=== PATIENT | male | born 1945 | race African-American/Black ===

== ENCOUNTER 2021-04-22 17:07 | Inpatient (IN) | payer MEDICARE ==
[~2021-04-22] VITALS: Ht 180.3 cm; Wt 98.9 kg
[2021-04-22 21:28] VITALS: BP 149/80
--- NOTE | 2021-04-23 03:26 | NUR ---
PT WAS A DIRECT ADMIT FROM [facility].PT ALERT WITH FORGETFULNESS.ZIO OPERATIONS ENGINEER NOTED TO HIS L CHEST,PT UNABLE TO EXPLAIN WHY HE HAS IT.UP WITH ASSIST TO THE TOILET.CHASSIS DRIVER ON DUTY ROUNDED ON PT,ORDERS NOTED AND CARRIED OUT. PT ON TELE,SINUS MARK.PT RESTING ON HIS BED AT THIS TIME.CALL LIGHT WITHIN REACH.
[2021-04-23 03:57] VITALS: BP 109/62
[2021-04-23 07:00] LABS: HEMATOCRIT 40.7 % (42.0-52.0); HEMOGLOBIN 13.7 gm/dL (14.0-18.0); MCH 31.1 pg (26.0-34.0); MCHC 33.8 g/dL (28.0-37.0); MCV 92.2 fL (80.0-100.0); RBC 4.41 mil/uL (4.50-6.00); RDW 13.1 % (10.5-14.5); WBC 6.3 thou/uL (4.0-11.0)
[2021-04-23 07:08] VITALS: BP 123/75
[2021-04-23 07:24] LABS: ALBUMIN 2.9 g/dL (3.4-5.0); CALCIUM 8.4 mg/dL (8.5-10.1); CREATININE 0.9 mg/dL (0.7-1.3); POTASSIUM 3.9 mmol/L (3.5-5.1); TOTAL BILIRUBIN 2.5 mg/dL (0.2-1.0)
[2021-04-23 11:49] VITALS: BP 106/59
--- NOTE | 2021-04-23 13:47 | NUR ---
PT TO GI FOR COLONOSCOPY AT 1410. IV IN RAC NOT PATENT. IV RESTARTED IN RIGHT HAND INFUSING 1LNS TKO. IV IN RAC DISCONTINUED WITH CATHETER INTACT.
[2021-04-23 15:39] VITALS: BP 119/69
--- NOTE | 2021-04-23 18:32 | NUR ---
A/O X 4. ROOM AIR. STAND BY ASSIST. LEFT CHEST HOLTER MONITOR ON, CELLPHONE AT BEDSIDE. SB ON TELE. N @ 75 MLS/HR. RECTAL TUBE. LEFT HAND IV. NO PAIN. HAD A DECOMPRESSION OF COLON TODAY. CLEAR LIQUIDS ONLY RIGHT NOW. $1085 WAS TAKEN TO THE LOCK BOX WITH SECURITY.
[2021-04-23 20:49] VITALS: BP 146/76
[2021-04-23] MEDS ORDERED: ROPINIROLE HCL0.5 MG PO (23:06)
[2021-04-23] MEDS ORDERED: SIMVASTATIN40 MG PO (23:07)
[2021-04-23] MEDS ORDERED: TERAZOSIN HCL5 MG PO (23:07)
[2021-04-23] MEDS ORDERED: VESICARE 5 MG TA5 MG PO (23:07)
[2021-04-23] MEDS ORDERED: OMEPRAZOLE40 MG PO (23:07)
[2021-04-23] MEDS ORDERED: KLOR-CON 10 ER10 MEQ PO (23:08)
[2021-04-23] MEDS ORDERED: FUROSEMIDE 20 M20 MG PO (23:08)
[2021-04-23] MEDS ORDERED: PROSCAR 5MG TABL5 M1 PO (23:09)
[2021-04-23] MEDS ORDERED: LEVOTHYROXINE125 MC1 PO (23:09)
[2021-04-23] MEDS ORDERED: BREO ELLIPTA 11 EACH INH (23:10)
[2021-04-23] MEDS ORDERED: VENTOLIN HFA 1818 GM INH (23:11)
[2021-04-23] MEDS ORDERED: AMBIEN 10 MG TA10 MG PO (23:11)
[2021-04-23] MEDS ORDERED: LATANOPROST 0.2.5 ML OPHTHALMIC (23:12)
[2021-04-23] MEDS ORDERED: NEURONTIN300 MG PO (23:13)
[2021-04-23] MEDS ORDERED: LINZESS145 MCG PO (23:14)
--- NOTE | 2021-04-24 03:47 | NUR ---
PT NPO. FOR COLONSCOPY. IV INTACT AND FLUIDS INFUSING. RECTAL TUBE IN PLACE FOR COLON DECOMPRESSION. FALL PREC INTACT, URINAL AT BEDSIDE WILL CONT TO MONITOR TILL EOS.
[2021-04-24 07:17] VITALS: BP 115/58
--- NOTE | 2021-04-24 11:09 | NUR ---
A/O X 3. ROOM AIR. STAND BY ASSIST. LEFT CHEST HOLTER MONITOR ON AND CELLPHONE FOR IT AT BEDSIDE. NS @ 75 MLS/HR VIA LEFT HAND IV. HAS RECTAL TUBE IN PLACE AND IS PASSING FLATUS. NO PAIN NOTED AT THIS TIME. NPO.
[2021-04-24 11:54] VITALS: BP 121/63
[2021-04-24 15:53] VITALS: BP 140/68
[2021-04-24 20:40] VITALS: BP 140/68
[2021-04-25 02:37] LABS: ALBUMIN 2.9 g/dL (3.4-5.0); CALCIUM 8.4 mg/dL (8.5-10.1); CREATININE 0.8 mg/dL (0.7-1.3); POTASSIUM 3.6 mmol/L (3.5-5.1); TOTAL BILIRUBIN 3.2 mg/dL (0.2-1.0); TOTAL PROTEIN 6.1 g/dL (6.4-8.2)
--- NOTE | 2021-04-25 04:00 | NUR ---
NPO THRO THE NOC. DENIES PAIN OR ANY NAUSEA.VOIDS PER URINAL, SOME URINARY HESITANCY NOTED. CALLS WITH NEEDS.
[2021-04-25 07:50] VITALS: BP 131/73
--- NOTE | 2021-04-25 10:49 | NUR ---
ASSUMED PT CARE THIS AM. PT IS ALERT & ORIENTED X4 BUT HAS SLURRED SPEECH. PT HAS IV SITE ON L HAND RUNNING D5W @125ML/HR. PT USES URINAL. NO C/O OF PAIN. PT IS ON ROOM AIR. PT HAS L CHEST HOTLER MONITOR. PT HAS RECTAL TUBE FOR COLON DECOMPRESSION. PT WILL HAVE SIGMOIDECTOMY TOMORROW. WILL BE GIVEN BOWEL PREP SOON. PT ON THE BED, BED ON THE LOWEST POSITION, SIDE RAILS UP, CALL LIGHT WITHIN REACH. WILL CONTINUE TO MONITOR PT. FOLLOW POC.
[2021-04-25 16:51] VITALS: BP 156/75
[2021-04-25 19:47] VITALS: BP 130/64
--- NOTE | 2021-04-26 02:45 | NUR ---
PER REPORT,PT'S RECTAL OUT DURING DAY SHIFT,PHYSICIAN AWARE.PT STILL DRINKING BOWEL PREP AT SHIFT CHANGE.FREQUENT VISITS TO THE BR NOTED.PT C/O NAUSEA,MANAGED WITH MED.PT NPO AT 0200 FOR SURGERY LATER IN THE DAY.L CHEST HOLSTER MONITOR TO L CHEST.PT ABLE TO MAKE HIS NEEDS KNOWN.CALL LIGHT WITHIN REACH.
[2021-04-26 03:46] VITALS: BP 121/63
[2021-04-26 05:27] LABS: HEMATOCRIT 40.9 % (42.0-52.0); HEMOGLOBIN 13.7 gm/dL (14.0-18.0); MCHC 33.5 g/dL (28.0-37.0); MCV 92.5 fL (80.0-100.0); RBC 4.42 mil/uL (4.50-6.00); RDW 12.6 % (10.5-14.5); WBC 6.9 thou/uL (4.0-11.0)
[2021-04-26 05:32] LABS: CALCIUM 8.6 mg/dL (8.5-10.1); CREATININE 0.9 mg/dL (0.7-1.3); POTASSIUM 3.4 mmol/L (3.5-5.1)
[2021-04-26 08:23] VITALS: BP 116/56
--- NOTE | 2021-04-26 11:48 | NUR ---
INITIAL ASSESSMENT: SW reviewed chart and spoke with nursing and attending physician. Pt was transferred to [facility] from [facility] for general surgery consult. Pt with sigmoid volvulus. Pt is currently off the unit having sigmoidectomy. Per chart, pt is alert/orientated x 4. Pt lives at home alone in an apt. No stairs to navigate. No prior use of DME for ambulation. PT evaluated pt on 04/23 and discharged pt. PT/OT to be re-consulted if needed. SW to follow up with pt to discuss and assist as needed with discharge planning.
[2021-04-26 14:13] VITALS: BP 119/59
[2021-04-26 15:21] VITALS: BP 119/68
[2021-04-26 19:20] VITALS: BP 129/66
--- NOTE | 2021-04-26 20:07 | NUR ---
A/O X 4. ROOM AIR. STAND BY ASSIST. SIGMOIDECTOMY TODAY. 3 ABD LAP SITES, LOWER TRANSVERSE-DRAINAGE NOTED. VIDES IN PLACE. LEFT AND RIGTH HAND IV WITH LR INFUSING RIGHT HAND. ABD TENDERNESS NOTED, PRN PAIN MEDICATION GIVEN. HIS BROTHER CAME TO TO SEE HIM TODAY. NO NAUSEA NOTED.
--- NOTE | 2021-04-27 02:26 | NUR ---
ASSESSED AT START OF SHIFT. PT RESTING IN BED. EVENING MEDS GIVEN. IV INTACT AND FLUIDS INFUSING. TYELNOL GIVEN FOR LOW GRADE TEMP. FOLLEY TO D/D. 3 LAB SITES INTACT. WILL CONT TO MONITOR TILL EOS.
[2021-04-27 04:43] VITALS: BP 117/62
[2021-04-27 08:49] VITALS: BP 121/61
--- NOTE | 2021-04-27 09:20 | NUR ---
PATIENT RESTING IN HIS BED WATCHING TV. PATIENT STATES TENDERNESS ALONG ABD. 3 ABD LAP SITES-NO DRAINAGE NOTED, TAPE OVER SITES. LOW TRANSVERSE SURGICAL SITE- TAPE, SLIGHT DRAINAGE NOTED. A/O X 3. ROOM AIR. STAND BY ASSIST WITH TRANSFERS. LEFT CHEST HOLTER MONITOR ON AND CELLPHONE FOR IT AT BEDSIDE. LEFT AND RIGHT HAND PIV- PATENT/FLUSHES WELL. VIDES IN PLACE- YELLOW URINE NOTED. TOLERATING CLEAR LIQUID DIET. D5 1/2 NS INFUSING VIA RIGHT HAND @ 100 MLS/HR. NO BM YET TODAY. NO NAUSEA.
--- NOTE | 2021-04-27 13:43 | NUR ---
SW reviewed chart and spoke with nursing and attending physician. Pt is s/p sigmoidectomy. Pt's diet is being advanced. PT/OT consulted today to re-eval pt for discharge needs. TRAV met with pt at bedside. Introduced role of SW. Pt is alert/orientated. Pt reports he lives alone in a ground apt at [facility], [facility] in [place]. Prior to admission. pt was independent with ADLs. Pt does not use any DME. Pt states he has done outpatient therapy at [facility]. Pt's PCP is Dr. Kenton Haile at [facility]. Pt's brother, Bravo, is involved in pt's care. SW discussed plan for pt to discharge home when medically stable. Pt is agreeable and states he will need transportation home. SW is following to assist as needed with discharge planning.
[2021-04-27 19:07] VITALS: BP 118/58
[2021-04-27 23:10] LABS: HEMATOCRIT 40.8 % (42.0-52.0); HEMOGLOBIN 13.4 gm/dL (14.0-18.0); MCH 30.4 pg (26.0-34.0); MCHC 32.8 g/dL (28.0-37.0); MCV 92.7 fL (80.0-100.0); RBC 4.4 mil/uL (4.50-6.00); RDW 13.2 % (10.5-14.5)
[2021-04-28 03:48] VITALS: BP 108/59
--- NOTE | 2021-04-28 04:01 | NUR ---
RECEIVED CARE OF THIS PATIENT AT 1900. PATIENT ALERT AND ORIENTED X4. UP AD RANDALL. SM AMOUNT OF DAX BLOOD NOTED IN BRIEF AND BSC. DR MALDONADO NOTIFIED. ORDERS RECEIVED TO KEEP AN EYE ON IT AND CALL IF THERE IS A LARGE AMOUNT AND TO GET A CBC IN AM. LAB ORDERED. VERY LITTLE BLOOD SINCE. PATIENT HAS BEEN UP ON BSC PER HIS CHOICE MOST OF NIGHT. DENIES PAIN. IN IN BOTH HANDS. R HAND IV HAS FLUIDS INFUSING.
[2021-04-28 07:00] VITALS: BP 115/59
--- NOTE | 2021-04-28 08:34 | NUR ---
Assess due to length of stay. Admit w/ abdominal pain, sigmoid volvulus and required surgical intervention on 04/26. BMI 30, obese, without significant wt changes. Has been npo/cl x 6 days and tolerating clear liquid diet well. On IVF. Anticipate timely diet advance. Will add ensure clear while on clear liquid diet, otherwise low nutrition risk
--- NOTE | 2021-04-28 10:19 | NUR ---
ASSUMED PT CARE THIS AM. PT IS ALERT & ORIENTED X4. PT HAS IV SITES ON R HAND AND L HAND. PT IS UP AD RANDALL. PT IS ON ROOM AIR. ADVANCED DIET TO FULL LIQUID PER DR. PT HAS HOLTER MONITOR ON L CHEST. NO C/O OF PAIN, NAUSEA AND VOMITING. PT WAS WORKING WITH PHYSICAL THERAPY THIS AM AND DID GOOD PER PHYSICAL THERAPY. INFORMED DR THAT PT STILL HAVE BLOOD TINGED WHEN URINATING. PT ON THE CHAIR, CALL LIGHT WITHIN REACH. WILL CONTINUE TO MONITOR PT. FOLLOW POC.
[2021-04-28 12:45] VITALS: BP 115/59
--- NOTE | 2021-04-28 12:46 | NUR ---
TRAV reviewed chart and spoke with nursing and attending physician. Pt is progressing towards goals for discharge. Diet is being advanced today. Urology to see pt this afternoon due to hematuria. Recommendation made for pt to have HH services. TRAV met with pt at bedside to discuss discharge plan. Pt is agreeable with HH services. Options provided. No preference voiced. TRAV notified [facility] liaison of new referral. Awaiting final discharge orders at this time. Final discharge ppwk will need to be faxed to HH when available. Contact info for HH placed in pt's discharge summary. TRAV left cab voucher # [phone] if pt needs transportation home. Pt states his brother might be able to come pick him up when discharged. TRAV is following to assist as needed with discharge planning.
[2021-04-28 13:39] LABS: URINE BILIRUBIN NEGATIVE (Negative); URINE BLOOD 3+ (Negative); URINE CLARITY CLEAR; URINE COLOR YELLOW; URINE GLUCOSE-RANDOM* NEGATIVE (Negative); URINE KETONES NEGATIVE (Negative); URINE LEUKOCYTES TRACE (Negative); URINE NITRITE NEGATIVE (Negative); URINE PROTEIN (DIPSTICK) 1+ (Negative); URINE SPECIFIC GRAVITY 1.025 (1.005-1.035); URINE UROBILINOGEN 0.2 E.U./dl (0.2-1.0)
[2021-04-28 14:41] LABS: BACTERIA 1-9 Few /HPF (None Seen); CASTS None Seen /LPF (None Seen); CRYSTALS None Seen /LPF (None Seen); SQUAMOUS 4-10 Moderate /LPF (0-3); URINE WBC 6-15 Few /HPF (NONE SEEN)
--- NOTE | 2021-04-28 17:06 | PATH ---
Formerly [facility] [address] [place] [address] PATHOLOGY RPT PROCEDURE Name: LUIS ALBERTO WISE Room #: 435-P [facility] IN M.R.#: [id number] Admission: 04/22/21 Date of : 47 Discharge: 04/28/21 Report #: [id number] Path Case #: [id number] [facility] Accession Number: [id number] . 01 Material submitted: . sigmoid colon - SIGMOID COLON . 01 Clinical history: . LAPAROSCOPIC SIGMOID RESECTION SIGMOID VOVULOUS . 02 Diagnosis: Large intestine, sigmoid colon, laparoscopic sigmoid resection: - Markedly attenuated bowel wall associated with congestion, history of sigmoid volvulus. - Negative for dysplasia or malignancy. - Margins viable and unremarkable. (IUV:medical receptionist biller; 04/28/2021) MBR 04/28/2021 1559 Local . 02 Electronically signed: . Joanne Whitney MD, Pathologist NPI- [id number] . 01 Gross description: . Fixative: Formalin Labeled: Sigmoid colon Specimen received: Unoriented segment of colon Dimensions: 11.4 cm in length by 5.5 cm in diameter Margins: Both are stapled Serosa: [place]-edwards to pink-garsia, smooth, glistening Pericolic fat: 1.0 cm Mucosa: Light edwards, smooth with a slight amount of architectural folding identified Abnormalities: None identified Lymph nodes: None identified . Inpatient Services Director sections submitted as follows: A1-A2 both margins A3-A4 registration representative cross-sections. (CAA; 04/27/2021) QAC/QAC 04/27/2021 1209 Local . 02 Pathologist provided ICD-10: K56.2 . 02 CPT . [address] [address] PATHOLOGY RPT PROCEDURE Name: LUIS ALBERTO WISE Jess Room #: 435-P [facility] IN ..#: [id number] Admission: 04/22/21 Date of : 47 Discharge: 04/28/21 Report #: [id number] Path Case #: [id number] Specimen Comment: A courtesy copy of this report has been sent to [phone] Specimen Comment: [phone], Specimen Comment: Report sent to , DR MALDONADO / DR CHI Performed at: 01 [facility] [place], [place], [place] [id number] MD Reg Deleon MD Phone: [phone] Performed at: [address] [id number] MD Joanne Whitney MD Phone: [phone]
== END 2021-04-28 16:33 | disposition home health service (06) | DRG 330 ==
LOC: TBA 17:07 → 4S 18:14
PROVIDERS: Hospitalist; Nurse Practitioner Family; Physician Assistant; Surgery; ADMIT Internal Medicine; ATTEND Internal Medicine
DX: K56.2 Volvulus (principal); E44.0 Moderate protein-calorie malnutrition; J45.909 Unspecified asthma, uncomplicated; N21.0 Calculus in bladder; E80.6 Other disorders of bilirubin metabolism; N40.0 Benign prostatic hyperplasia without lower urinary tract symptoms; K21.9 Gastro-esophageal reflux disease without esophagitis; G47.00 Insomnia, unspecified; G25.81 Restless legs syndrome; E78.5 Hyperlipidemia, unspecified; E03.9 Hypothyroidism, unspecified; R53.81 Other malaise; K59.00 Constipation, unspecified; E78.00 Pure hypercholesterolemia, unspecified; E55.9 Vitamin D deficiency, unspecified; R31.0 Gross hematuria; Z20.822 Contact with and (suspected) exposure to COVID-19; Z88.6 Allergy status to analgesic agent; Z88.1 Allergy status to other antibiotic agents; Z87.11 Personal history of peptic ulcer disease; Z88.0 Allergy status to penicillin; Z88.2 Allergy status to sulfonamides; Z88.8 Allergy status to other drugs, medicaments and biological substances
CPT/HCPCS: 10102; 50010; 50093; 50101; 50386; 50525; 50555; 51390; 51708; 52265; 52266; 53307; 53310; 53314; 56462; 56525; 56526; 56527; 57092; 57157; 58574; 58586; 58637; 58984; 62110; 62900; 70005